=== PATIENT | male | born 1955 | race Caucasian/White ===

== ENCOUNTER 2025-02-16 14:37 | Outpatient (CLI) | payer OTHER, SELFPAY ==
--- NOTE | 2025-02-16 15:00 | CRLHL7_ITS ---
For Patients: As a result of the Century Cures Act, medical imaging exams and procedure reports are released immediately into your electronic medical record. You may view this report before your referring provider. If you have questions, please contact your health care provider. Indication: Pain in the right leg Technique: Real-time longitudinal and transverse sonographic valera-scale imaging with and without compression, as well as color, duplex, and spectral Doppler imaging before and after augmentation, was obtained of the deep system of the right lower extremity, including the common femoral, femoral, popliteal, posterior tibial, and peroneal veins. Comparison: None. Findings: Common femoral vein: No evidence of thrombus. Femoral vein: No evidence of thrombus. Popliteal vein: No evidence of thrombus. Calf veins: Patent. 7.0 x 0.9 x 3.8 centimeter fluid collection is seen along medial upper calf. 4.2 x 1.1 x 3.2 centimeter fluid collection is seen along the distal posterior thigh. Impression: 1. No ultrasound evidence of deep venous thrombosis. 2. Small to moderate fluid collections are seen surrounding the knee; these are nonspecific and may represent bursae or synovial or ganglion cysts. Dictated by Efe Guy MD @ 02/16/2025 3:48:05 PM (Electronically Signed)
--- OUTSIDE RECORDS SUMMARY | 2025-02-17 01:03 | XMS_ITS | Clinical Summary ---
Author Organization [facility] Address [address] [place] [address] Care Team Providers Care Electrical Continuity Tester Name Role Phone GenaroChacha garcia MD Primary Care Provider GenaroChacha garcia MD Unavailable [phone] Allergies No known active allergies Medications rosuvastatin (CRESTOR) 5 mg tabletIndications: Hyperlipidemia, unspecified hyperlipidemia type Take 1 Tablet (5 mg) by mouth at bedtime. 90 Tablet 3 04/01/20 24 Active polyethylene glycol-electrolyte (GOLYTELY) 236-22.74-6.74 -5.86 gram suspensionIndicati ons:Encounter for screening colonoscopy Drink 2 liters (half the bottle) the day before colonoscopy and 2 liters (remaining prep) 6 hours prior to colonoscopy appointment. 4000 mL 04/04/20 24 Active Active Problems Problem Noted Date Diagnosed Date Ectatic aorta 01/14/2023 Overview (01/14/2023): AAA screening due 12/2025 Adenomatous polyp of ascending colon 12/26/2016 Overview (04/14/2024): Colonoscopy 11/2016 multiple benign adenomatous and serrated polyp repeat in 6 months at [facility] Colonoscopy 05/2017 polyps repeat in 3 years Colonoscopy 12/2020 two polyps, repeat in 3 years Colonoscopy 03/2024 large TA, repeat in 1 year, [facility] Colon adenomas 12/16/2016 Osteoarthritis 07/24/2015 Overview (07/24/2015): R knee and right ankle, knee worse. BPH (benign prostatic hyperplasia) 07/24/2015 Overview (07/24/2015): Enlarged prostate noted by primary physician. Leukopenia 07/24/2015 Lumbar disc herniation, lumbar radiculopathy Immunizations Immunization Administration Dates Next Due COVID-19 vaccine (T[employer] NTech 30mcg/0.3mL) PF, MDV 11/27/2020,11/06/2020 Influenza, Inactivated AIIV4 (Age 65+ Years) Preserv Free 05/29/2023,06/16/2022,06/27/2021 Pneumococcal Conj 20-valent (Prevnar 20) 023 Tdap 07/20/2015 Family History Medical History Relation Name Comments Good Health Brother COPD Father Arthritis Mother spine Psychiatric illness Mother anxiety Good Health Sister Relation Name Status Comments Brother Father Maternal Grandfather Maternal Grandmother Mother Paternal Grandfather Paternal Grandmother Sister Social History Tobacco Use Types Packs/Day Years Used Date Smoking Tobacco: Former Cigarettes 2.5 20 1 09/23/1970 - 07/24/1991 Smokeless Tobacco: Never Tobacco Cessation:Counseling Given: Not Answered Alcohol Use Standard Drinks/Week Comments Yes 35 (1 standard drink = 0.6 oz pu re alcohol) 2-6 beers daily PHQ-2 Answer Date Recorded PHQ-2 TOTAL SCORE 0 04/01/2024 Social Connections Answer Date Recorded Frequency of Communication with Friends and Fami ly 0 05/29/2023 Financial Resource Strain Answer Date R ecorded Difficulty of Paying Living Expenses 3 05/29/2023 Difficulty of Paying Living Expenses Not on file 05/29/2023 Food Insecurity Answer Date Recorded Worried About Running Out of Food in the Last Ye ar 1 05/29/2023 Transportation Needs Answer Date Record ed Lack of Transportation (Medical) 1 05/29/2023 Housing Stability Answer Date Recorded Unable to Pay for Housing in the Last Year 1 05/29/2023 Sex and Gender Information Value Date Recorded Sex Assigned at Not on file Legal Sex Male 5:25 AM [employer] Gender Identity Not on file Sexual Orientation Not on file Obstetrics History Last Filed Vital Signs Vital Sign Reading Time Taken Comments Blood Pressure 145/75 04/01/2024 9:42 AM CDT Pulse 77 04/01/2024 9:42 AM CDT Temperature 37.1 C (98.7 F) 06/13/2023 9:18 AM CDT Respiratory Rate 16 06/13/2023 9:18 AM CDT Oxygen Saturation 97% 04/01/2024 9:42 AM CDT Inhaled Oxygen Concentration - - Weight 100.1 kg (220 lb 9.6 oz) 04/01/2024 9:42 AM CDT Height 184.8 cm (6' 0.75) 04/01/2024 9:42 AM CD T Body Mass Index 29.31 04/01/2024 9:42 AM CDT Plan of Treatment Scheduled Procedures Name Priority Associated Diagnoses Date/Ti me SURGICAL PROCEDURE (TYPE PROCEDURE DESCRIPTION BELOW) Encounter for screening colonoscopy Health Maintenance Due Date Last Done Comments Zoster (shingles) series for age 50+ (1 of 2) 2003 COVID-19 vaccine series ( season) 2025 07/05/2024, 06/03/2023, 07/09/2022, Additional history exists BMI (ht and wt on same day) for age 18+ 04/01/2025 04/01/2024, 05/29/2023, 01/05/2023, Additional history exists Depression screening for age 12+ 04/01/2025 04/01/2024, 04/01/2024, 04/01/2024, Additional history exists Medicare Wellness for age 65+ 04/02/2025 04/01/2024, 01/05/2023 Colonoscopy through age 75 04/11/202504/11, 01/22/2021, 01/22/2021, Additional history exists Influenza Vaccine (Season Ended) 2025 05/29/2023, 06/16/2022, 06/27/2021 Tetanus booster 07/20/2025 07/20/2015 RSV vaccine for adults or (1 - 1-dose 75+ series) 2028 Lipids for age 45-75 04/01/2029 04/01/2024, 05/29/2023, 01/05/2023, Additional history exists Tdap Completed 07/20/2015 Hepatitis C screening for age 18-79 Completed 12/01/2016 Pneumococcal series for age 50+ Completed 01/05/2023 AAA screening age 65-74 Completed 01/12/2023 Hepatitis B series for 19+ Aged Out N o longer eligible based on patient's age to complete this topic Procedures Procedure Name Priority Date/Time Associated Diagnosis Comments COLONOSCOPY SCREENING Routine 04/11/2024 12:00 AM CDT Screening for colon cancer LIPID PANEL W REFLEX MEASURED LDL Routine 04/01/2024 10:09 AM CDT Hyperlipidemia, unspecified hyperlipidemia type US ABD AORTA SCREENING Routine 01/12/2023 10:05 AM CDT Screening for AAA (aortic abdominal aneurysm) ANTI HCV Routine 12/01/2016 2:34 PM CDT Dyspnea on exertion Cough from Last 3 Months or Most Recently Relevant to Health Maintenance Results * COLONOSCOPY SCREENING [[id number]] (04/11/2024 12:00 AM CDT) hCacha Lam MD GI PROCEDURE ORD Final Result * LIPID PANEL W REFLEX MEASURED LDL (04/01/2024 10:09 AM CDT) CHOLESTEROL,TOTAL 178 100 - 199 mg/dL 04/01/2024 6:27 PM CDT [facility] Comment: Cholesterol, Total Reference Ranges Desirable <200 mg/dL Borderline 200-239 mg/dL High >=240 mg/dL TRIGLYCERIDES 141 <150 mg/dL 04/01/2024 6:27 PM CDT [facility] HDL CHOLESTEROL 71 >40 mg/dL 6:27 PM CDT [facility] NON-HDL CHOLESTEROL 107 <145 mg/dl 04/01/2024 6:27 PM CDT [facility] CHOL/HDL RATIO 2.51 <4.50 04/01/2024 6:27 PM CDT [facility] LDL CHOLESTEROL 79 <=130 mg/dL 04/01/2024 6:27 PM CDT [facility] VLDL CHOLESTEROL 28 <=30 mg/dL 04/01/2024 6:27 PM CDT [facility] PROVIDER ORDERED STATUS RANDOM 04/01/2024 6:27 PM CDT [facility] Blood BLOOD SPECIMEN / Unknown Venipuncture / Unknown 04/01/2024 10:09 AM CDT 04/01/2024 10:11 AM CDT us Chacha Lam MD CHEMISTRY Final R esult [facility] [address] [place] [address], [place] * US ABD AORTA SCREENING [[id number]] (01/12/2023 10:05 AM CDT) Anatomical Region Laterality Modality Abdomen, AORTA Ultrasound 01/12/2023 11:1 4 AM CDT Narrative 01/12/2023 11:14 AM CDT For Patients: As a result of the Cures Act, medical imaging exams and procedure reports are released immediately into your electronic medical record. You may view this report before your referring provider. If you have questions, please contact your health care provider. Examination: US abdominal aorta Indication: Abdominal aortic aneurysm screening. Technique: Butler scale and color Doppler images of the aorta and common iliac arteries are obtained. Comparison: None Findings: Proximal aorta: 3.0 x 3.0 cm Mid aorta: 2.6 x 2.6 cm Distal aorta: 2.4 x 2.4 cm Right common iliac artery: 1.5 x 1.4 cm Left common iliac artery: 1.5 x 1.6 cm Recommended imaging interval for ectatic aorta: 3.0-3.4 cm: 3 years Impression: Proximal aorta measures 3.0 cm. Follow-up in 3 years recommended. Dictated by Familia Carrasquillo MD @ Jan 12 2023 11:14AM (Electronically Signed) Procedure Note Familia Carrasquillo MD - 01/12/2023 For Patients: As a result of the 21st Century Cures Act, medical imagingexams and procedure reports are released immediately into your electronicmedical record. You may view this report before your referring provider.If you have questions, please contact your health care provider. Examination: US abdominal aorta Indication: Abdominal aortic aneurysm screening. Technique: Butler scale and color Doppler images of the aorta and common iliac arteriesare obtained. Comparison: None Findings: Proximal aorta: 3.0 x 3.0 cm Mid aorta: 2.6 x 2.6 cm Distal aorta: 2.4 x 2.4 cm Right common iliac artery: 1.5 x 1.4 cm Left common iliac artery: 1.5 x 1.6 cm Recommended imaging interval for ectatic aorta: 3.0-3.4 cm: 3 years Impression: Proximal aorta measures 3.0 cm. Follow-up in 3 years recommended. Dictated by Familia Carrasquillo MD @ Jan 12 2023 11:14AM (Electronically Signed) us Chacha Lam MD Final R esult * ANTI HCV (12/01/2016 2:34 PM CDT) HEPATITIS C ANTIBODY Non-Reacti ve Non-Reacti ve 12/01/2016 8:24 PM CDT [facility] Blood BLOOD SPECIMEN / Unknown Venipuncture / Unknown 12/01/2016 2:34 PM CDT 12/01/2016 2:35 PM CDT Narrative [facility] - 12/01/2016 8:24 PM CDT Antibodies to HCV not detected; does not exclude the possibility of exposure to HCV. us China Flynn MD SEND OUTS Final R esult [facility] [address] [place] [address], [place] from Last 3 Months or Most Recently Relevant to Health Maintenance Insurance [place] [id number] MEDICARE PART A HB [place] [id number] MEDICARE PART A HB ONLY [facility] Advance Directives Documents on File Type Date Recorded Patient Horticultural Nursery Assistant Expl anation Healthcare Directive 11/17/2022 023 * Full Code (Latest Code Status on File) Date Activated Date Inactivated Comments 06/12/2023 6:15 AM 06/13/2023 5:58 PM Question Answer Comments Code Status Discussion: Unable to Assess Preferences, Provider to review later * Full Code Date Activated Date Inactivated Comments 07/30/2015 4:27 PM 07/31/2015 6:46 PM * Full Code Date Activated Date Inactivated Comments 07/30/2015 9:48 AM 07/30/2015 4:27 PM Care Teams Electrical Continuity Tester Relationship Specialty Start Date End Date [place] [address] [place] [address] PCP - General Family Practice 05/25/23 Chacha Lam MD [address] [place] [address] Family Practice 05/25/23
== END 2025-02-16 14:38 | disposition home or self-care (01) ==
LOC: US 14:40
PROVIDERS: PCP Family Medicine; Visit Provider Orthopaedic Surgery Sports Medicine
DX: M79.604 Pain in right leg (principal)
CPT/HCPCS: 93971

== ENCOUNTER 2025-05-19 08:16 | Outpatient (CLI) | payer OTHER, SELFPAY ==
--- NOTE | 2025-05-19 09:53 | P.ANES_ITS ---
Anesthesia Charges Start Date/Time Anesthesia Start Date: 05/19/25 Anesthesia Start Time: 09:20 Stop Date/Time Anesthesia Stop Date: 05/19/25 Anesthesia Stop Time: 09:49 Summary Extremes of Age - Over 70 or under 1: MOTION PICTURE OPERATOR Coding CPT Codes CPT Codes: ANES LWR INTST NDSC NOS - 14041 ([id number]) P3 - PATIENT W/SEVERE SYS DISEASE, QK - OUTSOLE CEMENTER MACHINE 2-4 CNCRNT ANES PROC, QX - MOTION PICTURE OPERATOR SVC W/ MD MED DIRECTION Additional Codes: Summary - Extremes of Age - Over 70 or under 1: MOTION PICTURE OPERATOR ([id number])
--- NOTE | 2025-05-19 09:53 | W.ANESCHARGE ---
Anesthesia Charges Start Date/Time Anesthesia Start Date: 05/19/25 Anesthesia Start Time: 09:20 Stop Date/Time Anesthesia Stop Date: 05/19/25 Anesthesia Stop Time: 09:49 Summary Extremes of Age - Over 70 or under 1: CRABBING MACHINE OPERATOR Coding CPT Codes CPT Codes: ANES LWR INTST NDSC NOS - 46357 ([id number]) P3 - PATIENT W/SEVERE SYS DISEASE, QK - YOUTH PROBATION OFFICER 2-4 CNCRNT ANES PROC, QX - CRABBING MACHINE OPERATOR SVC W/ MD MED DIRECTION Additional Codes: Summary - Extremes of Age - Over 70 or under 1: CRABBING MACHINE OPERATOR ([id number])
--- NOTE | 2025-05-19 10:21 | W.ANESCHARGE ---
Anesthesia Charges Start Date/Time Anesthesia Start Date: 05/19/25 Anesthesia Start Time: 09:20 Stop Date/Time Anesthesia Stop Date: 05/19/25 Anesthesia Stop Time: 09:49 Summary Extremes of Age - Over 70 or under 1: MDA Coding CPT Codes CPT Codes: ANES LWR INTST NDSC NOS - 25667 ([id number]) QK - NEWS ANALYST 2-4 CNCRNT ANES PROC, QX - ALLERGIST/PEDIATRIC PULMONOLOGIST SVC W/ MD MED DIRECTION, P3 - PATIENT W/SEVERE SYS DISEASE Additional Codes: Summary - Extremes of Age - Over 70 or under 1: MDA ([id number])
== END 2025-05-19 08:17 | disposition home or self-care (01) ==
LOC: OP CLINIC 08:17
PROVIDERS: PCP Family Medicine; Visit Provider Internal Medicine Gastroenterology
DX: Z12.11 Encounter for screening for malignant neoplasm of colon (principal); Z86.0101 Personal history of adenomatous and serrated colon polyps; D12.2 Benign neoplasm of ascending colon; K57.30 Diverticulosis of large intestine without perforation or abscess without bleeding
CPT/HCPCS: 00811; 45385; 88305; 99100; J2704